=== PATIENT | male | born 1930 | race Caucasian/White ===

== ENCOUNTER 2016-07-19 08:08 | Outpatient (CLI) | payer MEDICARE, OTHER | END 2016-07-19 08:09 | disposition home or self-care (01) | DX: I25.10 Atherosclerotic heart disease of native coronary artery without angina pectoris (principal); E78.2 Mixed hyperlipidemia; Z79.899 Other long term (current) drug therapy ==

== ENCOUNTER 2017-04-06 14:55 | Outpatient (CLI) | payer MEDICARE, OTHER ==
[2017-04-06 14:34] LABS: THYROID STIMULATING HORMONE 3.13 uIU/mL (0.34-5.60)
[2017-04-07 10:21] LABS: TEST RESULT REPORT
== END 2017-04-06 14:56 | disposition home or self-care (01) ==
LOC: LAB.R 14:55
PROVIDERS: ATTEND Internal Medicine
DX: R41.3 Other amnesia (principal)
CPT/HCPCS: 81599; 82607; 84443; 86592

== ENCOUNTER 2017-04-11 10:03 | Outpatient (CLI) | payer MEDICARE, OTHER ==
--- NOTE | 2017-04-11 18:34 | MRI Report ---
EXAM: MRI BRAIN WITHOUT CONTRAST EXAM DATE: 04/11/2017 11:11 AM. CLINICAL HISTORY: MEMORY DEFICIT. COMPARISON: None. TECHNIQUE: Multiplanar, multisequence T1-weighted and fluid-sensitive MR sequences of the brain were performed. Sequences optimized for routine evaluation. Other: None. IV Contrast: None. FINDINGS: Brain Volume: Moderate diffuse cerebral and cerebellar volume loss with exvacuo dilatation of the iraida tricles and sulci, appropriate for age. Parenchyma/Dura: No mass, acute infarct or hemorrhage. Scattered T2/FLAIR hyperintense periventricula r and deep white matter lesions within the cerebral hemispheres bilaterally. Ventricles/Cisterns: No hydrocephalus. Moderate age appropriate exvacuo dilatation. No abnormal extra -axial fluid collection or hemorrhage. Orbits: Status post bilateral lens replacement surgery. Sella [place]: The pituitary gland, cavernous sinuses, suprasellar cistern and optic chiasm are unrem arkable. IAC: Symmetric and unremarkable. Vasculature: Normal signal flow void is seen in the major arterial structures at the skull base. Sinuses: Moderate mucosal thickening left maxillary sinus. Mild mucosal thickening right maxillary si nus. Remaining paranasal sinuses and mastoid air cells are clear. Bones: No focal pathologic appearing marrow signal changes. Other: None. IMPRESSION: 1. Moderate diffuse cerebral and cerebellar volume loss with exvacuo dilatation of the ventricles and sulci, appropriate for age. 2. Scattered T2/FLAIR hyperintense periventricular and deep white matter lesions within the cerebral hemispheres bilaterally. 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 3. No evidence of acute intracranial abnormality, specifically no evidence of acute or subacute infar ct, intracranial hemorrhage, mass, midline shift, or hydrocephalus. [facility] Referring Provider Line: [phone] SITE ID: [id number]
== END 2017-04-11 10:04 | disposition home or self-care (01) ==
LOC: DI 10:03
PROVIDERS: ATTEND Internal Medicine
DX: R41.3 Other amnesia (principal)
CPT/HCPCS: 70551

== ENCOUNTER 2017-08-07 08:17 | Outpatient (CLI) | payer MEDICARE, OTHER ==
[2017-08-07 10:32] LABS: BASOPHILS % (AUTO) 0.7 %; EOSINOPHILS % (AUTO) 0.9 %; HGB - HEMOGLOBIN 15.1 g/dL (14.0-18.0); LYMPHOCYTES % (AUTO) 21.4 %; MEAN CORPUSCULAR HEMOGLOBIN 31.7 pg (27.0-31.0); MEAN CORPUSCULAR HGB CONC 34.2 g/dL (32.0-36.0); MEAN CORPUSCULAR VOLUME 92.9 fL (80.0-94.0); MEAN PLATELET VOLUME 8.7 fL (7.4-11.4); MONOCYTES # (AUTO) 0.5 10^3/uL (0.0-1.0); MONOCYTES % (AUTO) 9.7 %; NEUTROPHILS # (AUTO) 3.3 10^3/uL (1.5-6.6); NEUTROPHILS % (AUTO) 67.3 %; PLT - PLATELET COUNT 207 10^3/uL (130-450); RED BLOOD COUNT 4.75 10^6/uL (4.70-6.10); RED CELL DISTRIBUTION WIDTH 13.7 % (12.0-15.0); WHITE BLOOD COUNT 4.9 x10^3/uL (4.8-10.8)
[2017-08-07 10:45] LABS: ALBUMIN 4.3 g/dL (3.2-5.5); ALBUMIN/GLOBULIN RATIO 1.8 (1.0-2.2); ALKALINE PHOSPHATASE 63 IU/L (42-121); ALT ALANINE AMINOTRANSFERASE 17 IU/L (10-60); AST ASPARTATE AMINOTRANSFERASE 22 IU/L (10-42); BILIRUBIN,TOTAL 0.6 mg/dL (0.2-1.0); BUN - BLOOD UREA NITROGEN 21 mg/dL (6-20); CALCIUM 8.9 mg/dL (8.5-10.3); CARBON DIOXIDE - CO2 24 mmol/L (21-32); CHLORIDE 107 mmol/L (101-111); CHOL/HDL RATIO 2.9 (<5.0); CHOLESTEROL 118 mg/dL; CREATININE 1.3 mg/dL (0.6-1.2); GFR - MDRD 52 (>89); GLUCOSE 114 mg/dL (70-100); HDL CHOLESTEROL 41 mg/dL; LDL CHOLESTEROL,CALCULATED 58 mg/dL; LDL/HDL RATIO 1.4 (<3.6); SODIUM 139 mmol/L (135-145); TOTAL PROTEIN 6.7 g/dL (6.7-8.2); VLDL CHOLESTEROL 19 mg/dL
== END 2017-08-07 08:18 | disposition home or self-care (01) ==
LOC: LAB.F 08:17
PROVIDERS: ATTEND Internal Medicine
DX: Z79.899 Other long term (current) drug therapy (principal); I25.10 Atherosclerotic heart disease of native coronary artery without angina pectoris
CPT/HCPCS: 36415; 80053; 80061; 83721; 85025

== ENCOUNTER 2019-04-21 08:03 | Outpatient (CLI) | payer MEDICARE, OTHER ==
--- NOTE | 2019-04-21 09:13 | XRAY Report ---
Reason: PAIN IN LEFT SHOULDER Procedure Date: 04/21/2019 Accession Number: [id number] / [id number] Procedure: XR - Shoulder 3 View LT CPT Code: Final Report FULL RESULT: EXAM: LEFT SHOULDER RADIOGRAPHY EXAM DATE: 04/21/2019 08:28 AM. CLINICAL HISTORY: Pain in left shoulder. COMPARISON: None. TECHNIQUE: 3 views. FINDINGS: Bones: Generalized bony demineralization. No fracture or bone lesion. Joints: Mild narrowing of the subacromial space and glenohumeral articulation. The AC articulation appears preserved. Soft tissues: Left upper lobe nodule. Follow-up chest x-ray may be helpful for further evaluation. No soft tissue swelling. IMPRESSION: Mild degenerative changes at the left shoulder. Left upper lobe lung nodule. [facility]
== END 2019-04-21 08:04 | disposition home or self-care (01) ==
LOC: DI 08:03
PROVIDERS: ATTEND Nurse Practitioner Family
DX: M19.012 Primary osteoarthritis, left shoulder (principal); R91.1 Solitary pulmonary nodule

== ENCOUNTER 2019-04-25 11:59 | Outpatient (CLI) | payer MEDICARE, OTHER ==
--- NOTE | 2019-04-25 14:33 | XRAY Report ---
Reason: SOLITARY PULMONARY NODULE Procedure Date: 04/25/2019 Accession Number: [id number] / [id number] Procedure: XR - Chest 2 View X-Ray CPT Code: 24100 Final Report FULL RESULT: EXAM: CHEST RADIOGRAPHY, 2 VIEWS EXAM DATE: 04/25/2019 12:10 PM. CLINICAL HISTORY: Solitary pulmonary nodule in an 88-year-old male. COMPARISON: 1V CXR 05/03/2006 12:09 PM. TECHNIQUE: Upright PA and lateral views. FINDINGS: Lungs/Pleura: 1.2 cm ovoid nodule left midlung, unchanged from prior study of April 2006. No additional pulmonary nodules or masses. No infiltrates. No pleural effusion. No pneumothorax. Normal volumes. Mediastinum: Heart size normal, with postsurgical changes, as previously. No pulmonary vascular congestion or adenopathy. Other: Trachea is midline. Postsurgical devices in stable and satisfactory position. Osseous structures unremarkable for age. IMPRESSION: Stable 1.2 cm likely calcified nodule left midlung, unchanged from prior study of April 2006. No additional pulmonary nodules or masses. No infiltrates or effusions. [facility]
== END 2019-04-25 12:00 | disposition home or self-care (01) ==
LOC: DI 11:59
PROVIDERS: ATTEND Nurse Practitioner Family
DX: R91.1 Solitary pulmonary nodule (principal)
CPT/HCPCS: 71046

== ENCOUNTER 2019-05-20 11:39 | Emergency (ER) | payer MEDICARE, OTHER ==
[2019-05-20 12:19] LABS: BASOPHILS % (AUTO) 0.7 %; EOSINOPHILS # (AUTO) 0.1 10^3/uL (0.0-0.7); HGB - HEMOGLOBIN 15.1 g/dL (14.0-18.0); LYMPHOCYTES # (AUTO) 1.1 10^3/uL (1.5-3.5); MEAN CORPUSCULAR HEMOGLOBIN 31.8 pg (27.0-31.0); MEAN CORPUSCULAR HGB CONC 33.1 g/dL (32.0-36.0); MEAN PLATELET VOLUME 9.7 fL (7.4-11.4); MONOCYTES # (AUTO) 0.5 10^3/uL (0.0-1.0); NEUTROPHILS # (AUTO) 4.1 10^3/uL (1.5-6.6); NEUTROPHILS % (AUTO) 70.1 %; PLT - PLATELET COUNT 261 10^3/uL (130-450); RED BLOOD COUNT 4.75 10^6/uL (4.70-6.10); RED CELL DISTRIBUTION WIDTH 13.3 % (12.0-15.0); WHITE BLOOD COUNT 5.9 x10^3/uL (4.8-10.8)
[2019-05-20 12:34] LABS: ALBUMIN 4.4 g/dL (3.2-5.5); ALBUMIN/GLOBULIN RATIO 1.6 (1.0-2.2); BILIRUBIN,TOTAL 0.8 mg/dL (0.2-1.0); CALCIUM 9.4 mg/dL (8.5-10.3); CREATININE 1.3 mg/dL (0.6-1.2); TOTAL PROTEIN 7.2 g/dL (6.7-8.2)
--- NOTE | 2019-05-20 12:42 | ED Physician Documentation ---
History of Present Illness - Stated complaint Stated Complaint: REDMAN/CONFUSION - Chief complaint Chief Complaint: General - Additonal information Additional information: This is an 88-year-old male with a history of ocular migraines who episode of confusion as well as a mild headache. Patient states that he often gets ocular migraines which he describes as flashing lights in the side of his eyes, this morning he had 1 of those, he also developed mild headache which was 3 out of 10 in severity. All of this is fairly typical for his migraines, he went out to the garage to get in his car to go to a chiropractor appointment, and he states that when he went to the garage he realized that he was confused and he was having difficulty figuring out how to get to the car. He called his son (who is present with him at the bedside) and his son states that the pt described feeling confused but he was speaking normally to him on the phone. Patient denies any facial droop or weakness or numbness. His son arrived at his house and checked him for arm drift and facial symmetry and his strength and face and speech were normal. Now patient is feeling better he states that the whole episode probably lasted 20 to 30 minutes. He has never had episode like this before. He denies fever, cough, chest pain, shortness of breath, dysuria. His headache is very mild almost gone at this point, and he states that it was never severe. Pt has had some memory issues in the past and had an MRI in 2017 that was unremarkable. Review of Systems Constitutional: denies: Fever Eyes: denies: Loss of vision Nose: denies: Rhinorrhea / runny nose Throat: denies: Dental pain / toothache Cardiac: denies: Chest pain / pressure Respiratory: denies: Dyspnea GI: denies: Abdominal Pain : denies: Dysuria Musculoskeletal: denies: Neck pain Neurologic: reports: Altered mental status PD PAST MEDICAL HISTORY - Past Medical History Neuro: Headaches - Allergies Allergies/Adverse Reactions: Allergies Allergy/AdvReac Type Severity Reaction Status Date / Time No Known Drug Allergies Allergy Verified 05/20/19 11:50 PD ED PE NORMAL - Vitals Vital signs reviewed: Yes - General General: Alert and oriented X 3, No acute distress, Other ([place] appearing eldery gentleman) - HEENT HEENT: PERRL - Neck Neck: Supple, no meningeal sign - Cardiac Cardiac: RRR, No murmur - Respiratory Respiratory: No respiratory distress, Clear bilaterally - Abdomen Abdomen: Normal bowel sounds, Soft, Non tender, Non distended - Derm Derm: Warm and dry - Extremities Extremities: No deformity - Neuro Neuro: Alert and oriented X 3, english instructor 2-12 intact, No motor deficit, No sensory deficit, Normal speech, Other (Normal, narrow based gait without ataxia. No dysmetria.) - Psych Psych: Normal mood, Normal affect Results - Vitals Vitals: Vital Signs - 24 hr 05/20/19 05/20/19 11:47 14:34 Temperature 36.4 C L Heart Rate 59 L 56 L Respiratory 14 18 Rate Blood Pressure 143/72 H 135/65 H O2 Saturation 97 96 Oxygen O2 Source Room air - Labs Labs: Laboratory Tests 05/20/19 05/20/19 05/20/19 12:07 12:12 12:12 WBC 5.9 RBC 4.75 Hgb 15.1 Hct 45.6 MCV 96.0 H MCH 31.8 H MCHC 33.1 RDW 13.3 Plt Count 261 MPV 9.7 Neut # (Auto) 4.1 Lymph # (Auto) 1.1 L [place] # (Auto) 0.5 Eos # (Auto) 0.1 Baso # (Auto) 0.0 Absolute Nucleated RBC 0.00 Nucleated RBC % 0.0 Sodium 138 Potassium 4.5 Chloride 103 Carbon Dioxide 27 Anion Gap 8.0 BUN 23 H Creatinine 1.3 H Estimated GFR (MDRD) 52 L Glucose 107 H POC Whole Bld Glucose 105 H Calcium 9.4 Total Bilirubin 0.8 AST 21 ALT 20 Alkaline Phosphatase 59 Total Protein 7.2 Albumin 4.4 Globulin 2.8 Albumin/Globulin Ratio 1.6 Lipase 35 Urine Color Urine Clarity Urine pH Ur Specific [place] Urine Protein Urine Glucose (UA) Urine Ketones Urine Occult Blood Urine Nitrite Urine Bilirubin Urine Urobilinogen Ur Leukocyte Esterase Urine RBC Urine WBC Ur Squamous Epith Cells Urine Bacteria Urine Culture Comments 05/20/19 13:00 WBC RBC Hgb Hct MCV MCH MCHC RDW Plt Count MPV Neut # (Auto) Lymph # (Auto) [place] # (Auto) Eos # (Auto) Baso # (Auto) Absolute Nucleated RBC Nucleated RBC % Sodium Potassium Chloride Carbon Dioxide Anion Gap BUN Creatinine Estimated GFR (MDRD) Glucose POC Whole Bld Glucose Calcium Total Bilirubin AST ALT Alkaline Phosphatase Total Protein Albumin Globulin Albumin/Globulin Ratio Lipase Urine Color YELLOW Urine Clarity CLEAR Urine pH 6.0 Ur Specific [place] 1.010 Urine Protein NEGATIVE Urine Glucose (UA) NEGATIVE Urine Ketones NEGATIVE Urine Occult Blood NEGATIVE Urine Nitrite NEGATIVE Urine Bilirubin NEGATIVE Urine Urobilinogen 0.2 (NORMAL) Ur Leukocyte Esterase NEGATIVE Urine RBC None Seen Urine WBC 0-3 Ur Squamous Epith Cells NONE SEEN Urine Bacteria None Seen Urine Culture Comments NOT INDICATED - Rads (name of study) CT head WO Radiology: Other (General age-related atrophy changes without evidence of acute intracranial abnormality) PD MEDICAL DECISION MAKING - ED course Complexity details: considered differential (migraine, TIA, SAH, tension headache, UTI, electrolyte abnormality) ED course: Pt is very well appearing on exam. He communicates clearly and fluently with articulate language. His neurologic exam is unremarkable. His symptoms would be highly atypical for SAH given he had only a mild headache and his headache symptoms were similar to his normal headache symptoms. CT head shows age-related changes without acute intracranial abnormality. CT scan was performed within 6 hours of symptom onset and again I have a low suspicion for SAH, LP not indicated at this time. Pt has no fever, neck-stiffness, no current confusion or signs of meningitis/encephalitis. His labs are unremarkable - his creatinine is slightly elevated but at his personal baseline. UA negative for infection. On repeat exam patient continues to be very well appearing, with no confusion, normal neurlogic exam. His symptoms do not appear consistent with TIA, as he had no arm drift, speech changes, vision cuts, facial droop, and was endorsing confusion while reportedly speaking to his son without obvious signs of confusion. No chest pain, shortness of breath. No new medications that would be an obvious culprit, and no drug use. I discussed our workup with the patient and explained that I am uncertain as to the cause of his symptoms. Given he is completely asymptomatic at this time I discussed a plan of careful observation for any recurrent or new concerning symptoms, and close outpatient follow up. I explained that if he has any symptoms he should return immediately, and he agrees. His family will observe as well. He was discharged home in the care of ash beltran. Departure - Departure Disposition: 01 Home, Self Care Clinical Impression: Confusion Condition: Good Instructions: ED Confusion Follow-Up: Paolo Morrow MD [Primary Care Provider] - Within 1 week Comments: You were seen today for an episode of confusion. It is unclear what the cause of this was. Your labs are reassuring at this time and your CT scan of the head shows some general age-related changes, but no other acute abnormalities. If you develop any further confusion, or any other concerning symptoms such as weakness, numbness, facial droop, difficulty speaking/garbled speech, fever, chest pain, or any other concerning symptoms please return to the emergency department immediately. Even if you are feeling well please follow-up closely with your primary care provider. Discharge Date/Time: 05/20/19 14:49
--- NOTE | 2019-05-20 13:50 | CT Report ---
Reason: Confusion and headache Procedure Date: 05/20/2019 Accession Number: [id number] / [id number] Procedure: CT - HEAD WO CPT Code: Final Report FULL RESULT: EXAM: CT HEAD EXAM DATE: 05/20/2019 01:35 PM. CLINICAL HISTORY: Confusion and headache. COMPARISON: None. TECHNIQUE: Multiaxial CT images were obtained from the foramen magnum to the vertex. Reformats: Sagittal and coronal. IV contrast: None. In accordance with CT protocol optimization, one or more of the following dose reduction techniques were utilized for this exam: automated exposure control, adjustment of mA and/or KV based on patient size, or use of iterative reconstructive technique. FINDINGS: Parenchyma: No intraparenchymal hemorrhage. No evidence of mass or midline shift. Calles-white differentiation is distinct. Diffuse chronic microangiopathic white matter changes are evident. Extraaxial Spaces: Normal for age. No subdural or epidural collections identified. Ventricles: The ventricles and cortical sulci are enlarged, consistent with age-related tissue loss. Sinuses and orbits: Imaged paranasal sinuses, orbits, and mastoids show no significant abnormality. Bones: No evidence of fracture or calvarial defect. Other: None. IMPRESSION: Generalized age-related cortical atrophic changes without evidence of acute intracranial abnormality. [facility]
[2019-05-20 14:23] LABS: BILIRUBIN,URINE NEGATIVE (NEGATIVE); CLARITY,URINE CLEAR (CLEAR); GLUCOSE, URINE (UA) NEGATIVE (NEGATIVE); KETONES,URINE (UA) NEGATIVE (NEGATIVE); LEUKOCYTE ESTERASE, URINE NEGATIVE (NEGATIVE); NITRITE,URINE NEGATIVE (NEGATIVE); OCCULT BLOOD,URINE NEGATIVE (NEGATIVE); PROTEIN,URINE NEGATIVE (NEGATIVE); UROBILINOGEN,URINE 0.2 (NORMAL) E.U./dL (NORMAL)
[2019-05-20 14:31] LABS: BACTERIA,URINE None Seen /HPF (None Seen); RBC,URINE None Seen /HPF (0-5); SQUAMOUS EPITHELIAL CELL,UR NONE SEEN (<= Few)
[2019-05-20 14:35] VITALS: BP 135/65
== END 2019-05-20 14:49 | disposition home or self-care (01) ==
LOC: ED 11:39
DX: R41.0 Disorientation, unspecified (principal); R51 Headache
CPT/HCPCS: 36415; 70450; 80053; 81001; 83690; 85025; 87086; 99284

== ENCOUNTER 2019-07-14 10:12 | Observation (INO) | payer MEDICARE, OTHER ==
--- NOTE | 2019-07-14 12:24 | ED Physician Documentation ---
PD HPI FOCAL NEURO - Stated complaint Stated Complaint: SPEAKING ISSUES - Chief complaint Chief Complaint: Neuro - History obtained from History obtained from: Patient - History of Present Illness Timing - onset: Yesterday Timing - duration: Hours (3-4) Timing - details: Abrupt onset Severity of deficit: Severe Weakness: No: Face, Arm, Hand, Leg, Foot, Right, Left Numbness: No: Face, Arm, Hand, Leg, Foot, Right, Left Associated symptoms: No: Headache, Nausea / vomiting, Seizure, Syncope, Fall, Head injury, Chest pain, Neck pain, Back pain, Fever Contributing factors: negative: Anticoagulated, Atrial fibrillation Baseline status: positive: A&OX3, ambulatory, indep Similar symptoms before: Diagnosis (states has had confusion before) Recently seen: Not recently seen - Additional information Additional information: Patient is an 88-year-old male who states he had 3 to 4 hours of aphasia yesterday. Denies any other symptoms. States this is happened 2-3 times in the past. Review of Systems Ten Systems: 10 systems reviewed and negative Constitutional: denies: Fever, Chills GI: denies: Vomiting, Diarrhea Skin: denies: Rash Musculoskeletal: denies: Neck pain, Back pain Neurologic: denies: Focal weakness, Numbness, Seizure, Confused, Altered mental status, Headache PD PAST MEDICAL HISTORY - Past Medical History Past Medical History: Yes Cardiovascular: Hypertension Neuro: Headaches - Allergies Allergies/Adverse Reactions: Allergies Allergy/AdvReac Type Severity Reaction Status Date / Time No Known Drug Allergies Allergy Verified 07/14/19 10:18 - Social History Does the pt smoke?: No Smoking Status: Never smoker Does the pt have substance abuse?: No - Family History Family history: reports: Non contributory PD ED PE NORMAL - Vitals Vital signs reviewed: Yes - General General: Alert and oriented X 3, No acute distress - HEENT HEENT: Moist mucous membranes - Neck Neck: Supple, no meningeal sign - Cardiac Cardiac: RRR, Strong equal pulses - Respiratory Respiratory: No respiratory distress, Clear bilaterally - Abdomen Abdomen: Soft, Non tender, Non distended - Derm Derm: Warm and dry, No rash - Extremities Extremities: No edema - Neuro Neuro: Alert and oriented X 3, accounts receivable clerk 2-12 intact, No motor deficit, No sensory deficit, Normal speech Eye Opening: Spontaneous Motor: Obeys Commands Verbal: Oriented GCS Score: 15 - Psych Psych: Normal mood, Normal affect NIHSS - Time Time: 12:20 - Level of Consciousness Level of consciousness: (0) Alert, Keenly responsive LOC Questions: (0) Answers both Q's correct LOC Commands: (0) Performs both correctly - Gaze Best Gaze: (0) Normal - Visual Visual: (0) No loss - Facial Palsy Facial Palsy: (0) Normal, symmetrical movement - Motor Arms (both separate) Motor Arm (right): (0) No drift Motor Arm (left): (0) No drift - Motor Legs (both separate) Motor Leg (right): (0) No drift Motor Leg (left): (0) No drift - Limb Ataxia Limb Ataxia: (0) Absent - Sensory Sensory: (0) Normal - Best Language Best Language: (0) No aphasia - Dysarthria Dysarthria: (0) Normal - Extinction and Inattention (formally neg Extinction and inattention: (0) No abnormality - Total Score/Results Total Score/Result: 0 Results - Vitals Vitals: Vital Signs - 24 hr 07/14/19 07/14/19 10:18 12:54 Temperature 36.5 C Heart Rate 60 55 L Respiratory 14 9 L Rate Blood Pressure 155/53 H O2 Saturation 97 99 Oxygen O2 Source Room air - EKG (time done) 1221 Rate: Rate (enter#) (55) Rhythm: NSR [place]: Other (LAFB) Intervals: RBBB QRS: Normal Ischemia: Non specific changes - Labs Labs: Laboratory Tests 07/14/19 07/14/19 07/14/19 12:45 12:45 12:45 WBC 6.4 RBC 5.15 Hgb 15.6 Hct 48.9 MCV 95.0 H MCH 30.3 MCHC 31.9 L RDW 13.4 Plt Count 248 MPV 10.1 Neut # (Auto) 4.2 Lymph # (Auto) 1.4 L [place] # (Auto) 0.7 Eos # (Auto) 0.1 Baso # (Auto) 0.0 Absolute Nucleated RBC 0.00 Nucleated RBC % 0.0 Sodium 138 Potassium 4.4 Chloride 103 Carbon Dioxide 28 Anion Gap 7.0 BUN 24 H Creatinine 1.3 H Estimated GFR (MDRD) 52 L Glucose 99 Calcium 9.6 Total Bilirubin 0.8 AST 23 ALT 20 Alkaline Phosphatase 62 Total Protein 7.5 Albumin 4.3 Globulin 3.2 Albumin/Globulin Ratio 1.3 Lipase 41 Urine Color YELLOW Urine Clarity CLEAR Urine pH 5.5 Ur Specific [place] 1.020 Urine Protein NEGATIVE Urine Glucose (UA) NEGATIVE Urine Ketones NEGATIVE Urine Occult Blood NEGATIVE Urine Nitrite NEGATIVE Urine Bilirubin NEGATIVE Urine Urobilinogen 0.2 (NORMAL) Ur Leukocyte Esterase NEGATIVE Ur Microscopic Review NOT INDICATED Urine Culture Comments NOT INDICATED - Rads (name of study) head CT Radiology: Prelim report reviewed, EMP read contemporaneously, See rad report (No acute abnormality) PD MEDICAL DECISION MAKING - ED course Complexity details: reviewed results, re-evaluated patient, considered differential, d/w patient, d/w recruiting operations consultant ED course: Patient with a TIA yesterday. Will need further work-up in the hospital. Discu ssed case with Dr. Lang, hospitalist who accepts. This document was made in part using voice recognition software. While efforts are made to proofread this document, sound alike and grammatical errors may occur. Departure - Departure Disposition: ED Place in Observation Clinical Impression: TIA (transient ischemic attack) Condition: Good
[2019-07-14 13:01] LABS: BILIRUBIN,URINE NEGATIVE (NEGATIVE); GLUCOSE, URINE (UA) NEGATIVE (NEGATIVE); KETONES,URINE (UA) NEGATIVE (NEGATIVE); LEUKOCYTE ESTERASE, URINE NEGATIVE (NEGATIVE); NITRITE,URINE NEGATIVE (NEGATIVE); OCCULT BLOOD,URINE NEGATIVE (NEGATIVE); PH,URINE 5.5 PH (5.0-7.5); PROTEIN,URINE NEGATIVE (NEGATIVE); UROBILINOGEN,URINE 0.2 (NORMAL) E.U./dL (NORMAL)
[2019-07-14 13:02] LABS: CLARITY,URINE CLEAR (CLEAR)
--- NOTE | 2019-07-14 13:02 | CT Report ---
Reason: ALOC Procedure Date: 07/14/2019 Accession Number: [id number] / [id number] Procedure: CT - HEAD WO CPT Code: Final Report FULL RESULT: EXAM: CT HEAD EXAM DATE: 07/14/2019 12:32 PM. CLINICAL HISTORY: ALOC. COMPARISON: HEAD W/O 05/20/2019 1:31 PM. TECHNIQUE: Multiaxial CT images were obtained from the foramen magnum to the vertex. Reformats: Sagittal and coronal. IV contrast: None. In accordance with CT protocol optimization, one or more of the following dose reduction techniques were utilized for this exam: automated exposure control, adjustment of mA and/or KV based on patient size, or use of iterative reconstructive technique. FINDINGS: Parenchyma: No intraparenchymal hemorrhage. No evidence of mass, midline shift, or CT findings of infarction. Calles-white differentiation is distinct. Extraaxial Spaces: Normal for age. No subdural or epidural collections identified. Ventricles: Normal in size and position. Sinuses and Orbits: Imaged paranasal sinuses, orbits, and mastoids show no significant abnormality. Bones: No evidence of fracture or calvarial defect. Other: None. IMPRESSION: No acute intracranial abnormality. [facility]
[2019-07-14 13:13] LABS: BASOPHILS % (AUTO) 0.6 %; EOSINOPHILS # (AUTO) 0.1 10^3/uL (0.0-0.7); EOSINOPHILS % (AUTO) 0.9 %; HGB - HEMOGLOBIN 15.6 g/dL (14.0-18.0); LYMPHOCYTES # (AUTO) 1.4 10^3/uL (1.5-3.5); LYMPHOCYTES % (AUTO) 22.3 %; MEAN CORPUSCULAR HEMOGLOBIN 30.3 pg (27.0-31.0); MEAN CORPUSCULAR HGB CONC 31.9 g/dL (32.0-36.0); MEAN PLATELET VOLUME 10.1 fL (7.4-11.4); MONOCYTES # (AUTO) 0.7 10^3/uL (0.0-1.0); MONOCYTES % (AUTO) 10.3 %; NEUTROPHILS # (AUTO) 4.2 10^3/uL (1.5-6.6); NEUTROPHILS % (AUTO) 65.6 %; PLT - PLATELET COUNT 248 10^3/uL (130-450); RED BLOOD COUNT 5.15 10^6/uL (4.70-6.10); RED CELL DISTRIBUTION WIDTH 13.4 % (12.0-15.0); WHITE BLOOD COUNT 6.4 x10^3/uL (4.8-10.8)
[2019-07-14] MEDS ORDERED: SODIUM CHLORIDE FLUSH 0.9% 10 ML SYRINGE IVP PRN (14:18)
[2019-07-14 14:21] LABS: ALBUMIN 4.3 g/dL (3.2-5.5); ALBUMIN/GLOBULIN RATIO 1.3 (1.0-2.2); BILIRUBIN,TOTAL 0.8 mg/dL (0.2-1.0); CALCIUM 9.6 mg/dL (8.5-10.3); CREATININE 1.3 mg/dL (0.6-1.2); TOTAL PROTEIN 7.5 g/dL (6.7-8.2)
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
[2019-07-14] MEDS: SODIUM CHLORIDE FLUSH 0.9% 10 ML SYRINGE IVP SCH (17:25)
[2019-07-14] MEDS: ASPIRIN 325 MG TABLET PO SCH (17:25)
--- NOTE | 2019-07-14 19:04 | PHARMACY PROGRESS NOTE ---
- Best Possible Medication History Admit Date and Time: 07/14/19 1418 Processed by: Pharmacy Medication History completed: Yes Patient Interview: Completed Secondary Source(s): Written medication list, Pharmacy records (confirmed what was filled at [facility] (not everything filled at [facility]) gunpowder) As the person ultimately responsible for medication therapy, providers are able to order a medication from an existing home medication list in [facility] via the "Reconcile Routine" prior to Confirmation of that medication by product support rep. Such practice is discouraged except when the physician, in their clinical judgment, deems that a medical need exists for a medication without regard to previous use.
[2019-07-14] MEDS ORDERED: ATORVASTATIN 40 MG TABLET PO SCH (21:00)
[2019-07-15] MEDS: SODIUM CHLORIDE FLUSH 0.9% 10 ML SYRINGE IVP SCH ×2 (00:06→08:40)
[2019-07-15 04:56] LABS: BASOPHILS % (AUTO) 0.7 %; EOSINOPHILS # (AUTO) 0.1 10^3/uL (0.0-0.7); EOSINOPHILS % (AUTO) 1.5 %; HGB - HEMOGLOBIN 15.2 g/dL (14.0-18.0); LYMPHOCYTES # (AUTO) 1.2 10^3/uL (1.5-3.5); LYMPHOCYTES % (AUTO) 19.2 %; MEAN CORPUSCULAR HEMOGLOBIN 31.2 pg (27.0-31.0); MEAN CORPUSCULAR HGB CONC 32.9 g/dL (32.0-36.0); MEAN CORPUSCULAR VOLUME 94.9 fL (80.0-94.0); MEAN PLATELET VOLUME 9.3 fL (7.4-11.4); MONOCYTES # (AUTO) 0.7 10^3/uL (0.0-1.0); MONOCYTES % (AUTO) 11.6 %; NEUTROPHILS # (AUTO) 4.1 10^3/uL (1.5-6.6); NEUTROPHILS % (AUTO) 66.8 %; PLT - PLATELET COUNT 221 10^3/uL (130-450); RED BLOOD COUNT 4.87 10^6/uL (4.70-6.10); RED CELL DISTRIBUTION WIDTH 13.2 % (12.0-15.0); WHITE BLOOD COUNT 6.1 x10^3/uL (4.8-10.8)
[2019-07-15 05:02] LABS: INR 1.1 (0.8-1.2); PT - PROTHROMBIN TIME 12.7 secs (9.9-12.6)
[2019-07-15 05:17] LABS: ALBUMIN/GLOBULIN RATIO 1.5 (1.0-2.2); ALKALINE PHOSPHATASE 54 IU/L (42-121); ALT ALANINE AMINOTRANSFERASE 20 IU/L (10-60); AST ASPARTATE AMINOTRANSFERASE 19 IU/L (10-42); BILIRUBIN,TOTAL 0.9 mg/dL (0.2-1.0); BUN - BLOOD UREA NITROGEN 23 mg/dL (6-20); CALCIUM 9.1 mg/dL (8.5-10.3); CARBON DIOXIDE - CO2 27 mmol/L (21-32); CHLORIDE 105 mmol/L (101-111); CHOL/HDL RATIO 2.9 (<5.0); CHOLESTEROL 126 mg/dL; CREATININE 1.2 mg/dL (0.6-1.2); GFR - MDRD 57 (>89); GLUCOSE 111 mg/dL (70-100); HDL CHOLESTEROL 43 mg/dL; LDL CHOLESTEROL,CALCULATED 57 mg/dL; LDL/HDL RATIO 1.3 (<3.6); SODIUM 140 mmol/L (135-145); TOTAL PROTEIN 6.6 g/dL (6.7-8.2); VLDL CHOLESTEROL 26 mg/dL
[2019-07-15 05:31] LABS: HB2 TOTAL 15.2 g/dL; HEMOGLOBIN A1C 0.6 g/dL; HEMOGLOBIN A1C % 5.8 % (4.6-6.2)
--- NOTE | 2019-07-15 08:37 | MRI Report ---
Reason: TIA,expressive aphasia Procedure Date: 07/15/2019 Accession Number: [id number] / [id number] Procedure: MRI - Brain W/O CPT Code: Final Report FULL RESULT: EXAM: MRI BRAIN WITHOUT CONTRAST EXAM DATE: 07/15/2019 08:06 AM. CLINICAL HISTORY: TIA, expressive aphasia. COMPARISON: BRAIN W/O 04/11/2017 10:40 AM. TECHNIQUE: Multiplanar, multisequence T1-weighted and fluid-sensitive MR sequences of the brain were performed. Sequences optimized for routine evaluation. Other: None. IV Contrast: None. FINDINGS: Parenchyma/Dura: No mass, acute infarct or hemorrhage. There are scattered foci of increased T2 signal involving white matter of bilateral cerebral hemispheres. Ventricles/Cisterns: There is moderate dilatation of lateral and third ventricles. Lynn ratio 0.34. No abnormal extra-axial fluid collection or hemorrhage. Orbits: Symmetric and unremarkable. Sella Turcica: Unremarkable. IAC: Symmetric and unremarkable. Vasculature: Normal signal flow void is seen in the major arterial structures at the skull base. Sinuses: Mild bilateral maxillary sinus mucosal thickening. No sinus fluid levels. Bones: No focal pathologic appearing marrow signal changes. Other: None. IMPRESSION: 1. No evidence of mass, infarct, or other acute abnormality. 2. Mild microvascular white matter disease. 3. Mild to moderate enlargement of lateral ventricles. This may reflect NPH or central volume loss. RADIA
[2019-07-15] MEDS: ASPIRIN 325 MG TABLET PO SCH (08:39)
[2019-07-15] MEDS ORDERED: ISOSORBIDE MONONITRATE ER 30 MG TABLET PO SCH (10:00)
--- NOTE | 2019-07-15 10:45 | Discharge Plan ---
Discharge Plan Problem Reviewed?: Yes Disposition: Home, Self Care Condition: Good Prescriptions: Metoprolol Succinate 25 mg PO DAILY #30 tab.er.24h Diet: Regular Activity Restrictions: Activity as Tolerated Shower Restrictions: No Driving Restrictions: No Weight Bearing: Full Weight Instruction Topics: Aphasia, TIA, Depression Causes Health Concerns: TIA Short term memory loss Expressive aphasia (loss of speech) Confusion Situational depression Coronary artery disease Ataxia (abnormal gait) Ocular migraines Plan of Treatment: Continue your regular medications, with the exception of reducing your beta windy (metoprolol) dose See your neurologist as scheduled See your primary care provider within one week No restrictions on driving since this event was not a stroke, and you were not thought to have any seizure activity Care Goals: Prevent a recurrence of this event Prevent falls Cheer up, find things that you enjoy, not to let your situational depression become worse Prevent hospital stays or ED visits Assessment: You were admitted to the hospital for further evaluation of a possible stroke. You were on a heart monitor, showing a slow rate, so your beta windy should be reduced by half. A head MRI showed no stroke, bleeding or masses, but did show expected age related changes, which explains your memory loss at times. A echocardiogram preliminary results also show no significant abnormalities. The final conclusion to this episode is likely due to TIA (transient ischemic accident) since your symptoms come and go. The treatment is at least 81 mg of aspirin daily and a statin, which you already take both of these. Your situational depression is concerning, and I will advise that you get more support for this. No Smoking: If you smoke, Please STOP! Call for help. Follow-up with: Paolo Morrow MD [Primary Care Provider] -
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
[2019-07-15 11:42] VITALS: BP 141/63
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
== END 2019-07-15 13:19 | disposition home or self-care (01) ==
LOC: ED 10:12 → MS2 14:18
PROVIDERS: ADMIT Nurse Practitioner; ATTEND Nurse Practitioner
DX: G45.9 Transient cerebral ischemic attack, unspecified (principal); R41.0 Disorientation, unspecified; R41.3 Other amnesia; F43.21 Adjustment disorder with depressed mood; I12.9 Hypertensive chronic kidney disease with stage 1 through stage 4 chronic kidney disease, or unspecified chronic kidney disease; N18.3 Chronic kidney disease, stage 3 (moderate); Z95.1 Presence of aortocoronary bypass graft; E78.5 Hyperlipidemia, unspecified; G62.9 Polyneuropathy, unspecified; R27.0 Ataxia, unspecified; G43.809 Other migraine, not intractable, without status migrainosus; R00.1 Bradycardia, unspecified; Z95.5 Presence of coronary angioplasty implant and graft; R90.82 White matter disease, unspecified; Z66 Do not resuscitate; Z87.891 Personal history of nicotine dependence; H91.93 Unspecified hearing loss, bilateral
CPT/HCPCS: 36415; 70450; 70551; 80053; 80061; 81003; 83036; 83690; 83735; 84443; 85025; 85610; 85651; 93005; 93306; 99285; A9270; G0378; 81001; 83721; 87086

== ENCOUNTER 2019-07-28 07:43 | Outpatient (CLI) | payer MEDICARE, OTHER | END 2019-07-28 07:44 | disposition EMS.NT | LOC: EMS 07:43 | PROVIDERS: ATTEND Surgery | DX: R07.9 Chest pain, unspecified (principal) ==